=== PATIENT | female | born 1945 | race Caucasian/White ===

== ENCOUNTER 2017-01-03 00:06 | Outpatient (CLI) ==
[2017-01-03 18:08] VITALS: BMI 37.0
== END 2017-01-03 00:07 ==
LOC: AMBL 00:06
PROVIDERS: ATTEND Family Medicine
DX: R06.02 Shortness of breath (principal); K92.1 Melena

== ENCOUNTER 2017-01-03 18:01 | Emergency (ER) ==
[2017-01-03 18:08] VITALS: BMI 37.0
[2017-01-03 18:41] LABS: OCCULT BLOOD INTERNAL QC 1 INTERNAL QC VALID; OCCULT BLOOD INTERNAL QC 2 INTERNAL QC VALID; OCCULT BLOOD INTERNAL QC 3 INTERNAL QC VALID; OCCULT BLOOD SAMPLE 1 POSITIVE (NEGATIVE); OCCULT BLOOD SAMPLE 2 NO SPECIMEN RECEIVED (NEGATIVE); OCCULT BLOOD SAMPLE 3 NO SPECIMEN RECEIVED (NEGATIVE)
--- NOTE | 2017-01-03 18:42 | ED.PDOC ---
General Stated Complaint: weakness Time Seen by Physician: 18:00 Mode of Arrival: Walk-In Information Source: Patient Exam Limitations: No limitations Nursing and Triage Documentation Reviewed and Agree: Yes <SHLOMOBAILEY - Last Filed: 01/03/17 18:52> <MANUEL OLIVER - Last Filed: 01/03/17 22:26> ED Provider: Dr. MANUEL OLIVER Chief Complaint: Shortness of Air Primary Care Provider: GERMÁN PERALES Neurological Complaint Exam - Weakness Complaint/Exam Onset: Gradual Duration: 1 week balck tarry stools Symptoms Are: Resolved Timing: Intermittent Episodes Lasting: Days Initial Severity: Mild Current Severity: Mild Character: Reports: Weak Aggravating: Reports: Exertion Alleviating: Reports: Rest, Lying down Associated Signs and Symptoms: Reports: Short of air, Decreased oral intake Cardiac Risk Factors: Reports: Hypertension, Diabetes CVA Risk Factors: Reports: Diabetes, Hypertension Related Surgical History: Reports: None JVD Present: No Carotid Bruit Present: No Rectal Heme Positive: Yes (black tarry strong finding) Glascow Coma Scale (see protocol): 15 Nystagmus Present: No Gag Reflex Present: No Meningeal Signs Positive: No Focal Weakness: Present: None Focal Sensory Loss: Present: None Gait: Normal Babinski Sign: Negative Right, Negative Left Differential Diagnoses: CAD, Dysrhythmia, Hyperventilation, Hypovolemia, Metabolic abnormalities, Vasovagal reaction Quality Indicators for Cardiac Chest Pain: EKG in 10min. Quality Indicators for AMI: EKG in 10min. Quality Indicator For Non-Traumatic Chest Pain/Syncope: EKG Performed <SHLOMOBAILEY Filed: 01/03/17 18:52> Review of Systems - Review Of Systems Constitutional: Reports: Malaise, Weakness Eyes: Reports: No symptoms Ears, Nose, Mouth, Throat: Reports: No symptoms Respiratory: Reports: Short of air Cardiac: Reports: No symptoms GI: Reports: Abdominal pain, Rectal bleeding : Reports: No symptoms Musculoskeletal: Reports: No symptoms Skin: Reports: No symptoms Neurological: Reports: No symptoms Endocrine: Reports: No symptoms Hematologic/Lymphatic: Reports: No symptoms All Other Systems: Reviewed and Negative <SHLOMOBAILEY Last Filed: 01/03/17 18:52> Past Medical History - Past Medical History Previously Healthy: No Endocrine: Reports: DM 2, Dyslipidemia Cardiovascular: Reports: Hypertension Respiratory: Reports: None Hematological: Reports: None Gastrointestinal: Reports: None Genitourinary: Reports: None Neuro/Psych: Reports: None Musculoskeletal: Reports: None Cancer: Reports: None Last Menstrual Period: none - Surgical History General Surgical History: Reports: Unknown - Family History Family History: Reports: Unknown - Social History Smoking Status: Never smoker Hx Substance Use: No Alcohol Screening: None <FREDRICKHOWARDBAILEY Last Filed: 01/03/17 18:52> - Surgical History General Surgical History: Reports: Hysterectomy, Cholecystectomy, Hernia Repair <MANUEL OLIVER Last Filed: 01/03/17 22:26> Physical Exam - Physical Exam Appearance: Ill-appearing Ill-appearing: Moderate Pain Distress: Moderate Eyes: CHRISTIE, EOMI, Conjunctiva clear ENT: Ears normal, Nose normal, Oropharynx normal Respiratory: Airway patent, Breath sounds clear, Breath sounds equal, Respirations nonlabored Cardiovascular: RRR, Pulses normal, No rub, No murmur GI/: Soft, Nontender, No masses, Bowel sounds normal, No Organomegaly Musculoskeletal: Normal strength, ROM intact, No edema, No calf tenderness Skin: Warm, Dry, Normal color Neurological: Sensation intact, Motor intact, Reflexes intact, Cranial nerves intact, Alert, Oriented Psychiatric: Affect appropriate, Mood appropriate <SHLOMOBAILEY Filed: 01/03/17 18:52> Interpretation - Radiology Interpretation Radiology Interpretation By: Radiologist Radiology Results: Positive Exam Interpreted: CT Scan <GENIE OLIVERAN Last Filed: 01/03/17 22:26> Physician Notification - Case Discussed Physician Notified: RELIFE Time of Notification: 19:00 <SHLOMOBAILEY Filed: 01/03/17 18:52> Critical Care Note - Critical Care Note Total Time (mins): 0 <SHLOMOBAILEY Last Filed: 01/03/17 18:52> Course - Course Hematology/Chemistry: 01/03/17 18:40 01/03/17 18:40 <MANUEL OLIVER Last Filed: 01/03/17 22:26> - Course Orders, Labs, Meds: Lab Review 01/03/17 01/03/17 18:30 18:40 WBC 8.57 RBC 2.74 L Hgb 8.2 L Hct 24.8 L MCV 90.5 MCH 29.9 MCHC 33.1 RDW Coeff of Arun 14.1 Plt Count 320 Immature Gran % (Auto) 0.6 Neut % (Auto) 71.6 Lymph % (Auto) 20.3 Mcdonald % (Auto) 5.0 Eos % (Auto) 1.9 Baso % (Auto) 0.6 Immature Gran # (Auto) 0.1 Neut # 6.1 Lymph # 1.7 Mcdonald # 0.4 Eos # 0.2 Baso # 0.1 PT 11.1 H INR 1.08 APTT < 21.0 L Sodium 140 Potassium 4.4 Chloride 105 Carbon Dioxide 23 Anion Gap 16.4 BUN 55 H Creatinine 1.26 Estimated GFR (MDRD) 42.00 BUN/Creatinine Ratio 43.65 Glucose 126 H Lactic Acid 19.7 Calcium 9.6 Total Bilirubin 0.35 AST 31 ALT 16 Alkaline Phosphatase 69 Total Creatine Kinase 23 Troponin I 0.0120 B-Natriuretic Peptide 83 Total Protein 6.5 Albumin 3.3 L Globulin 3.2 Albumin/Globulin Ratio 1.03 Stl Occult Blood (IFOB) Positive Stool Occult Blood #2 No specimen received Stool Occult Blood #3 No specimen received Influenza A (Rapid) Negative Influenza B (Rapid) Negative Orders Category Date Time Status B-TYPE NATRIURETIC PEPTIDE Stat LAB 01/03/17 18:40 Completed BLOOD CULTURE Stat LAB 01/03/17 18:40 Received CBC W/ AUTO DIFF Stat LAB 01/03/17 18:40 Completed COMPREHENSIVE METABOLIC PANEL Stat LAB 01/03/17 18:40 Completed CREATINE KINASE Stat LAB 01/03/17 18:40 Completed LACTIC ACID Stat LAB 01/03/17 18:40 Completed OCCULT BLOOD, STOOL Stat LAB 01/03/17 18:30 Completed PARTIAL THROMBOPLASTIN TIME Stat LAB 01/03/17 18:40 Completed PT WITH INR Stat LAB 01/03/17 18:40 Completed RAPID FLU A/B Stat LAB 01/03/17 18:30 Completed TROPONIN I Stat LAB 01/03/17 18:40 Completed Gemfibrozil [Lopid] MEDS 01/03/17 22:30 Discontinued 600 mg PO BIDAC Gemfibrozil [Lopid] MEDS 01/03/17 22:22 Stat 600 mg PO ONCE STA Metformin HCl [Glucophage] MEDS 01/03/17 22:22 Stat 1,000 mg PO ONCE STA Metoprolol Succinate [Toprol Xl] MEDS 01/03/17 22:16 Stat 50 mg PO ONCE STA CT ABDOMEN/PELVIS WO CONTRAST Stat RADS 01/03/17 18:[address] CHEST W/O CONTRAST Stat RADS 01/03/17 18:23 Completed Medications Discontinued Medications Generic Name Dose Route Start Last Admin Trade Name Lauren PRN Reason Stop Dose Admin Gemfibrozil 600 mg 01/03/17 22:30 Lopid PO BIDAC MAYKEL Gemfibrozil 600 mg 01/03/17 22:22 Lopid PO 01/03/17 22:23 ONCE STA Metformin HCl 1,000 mg 01/03/17 22:22 Glucophage PO 01/03/17 22:23 ONCE STA Metoprolol Succinate 50 mg 01/03/17 22:16 Toprol Xl PO 01/03/17 22:17 ONCE STA Vital Signs: Temp Pulse Resp BP Pulse Ox 01/03/17 21:29 97.4 F L 81 16 126/69 100 01/03/17 18:01 97.3 F L 89 22 112/75 98 Departure - Departure Pt referred to PMD for follow-up: No Disposition Discussed With: Patient, Family <BAILEY KEENAN - Last Filed: 01/03/17 18:52> - Departure Time of Disposition: 22:24 Pt referred to PMD for follow-up: No <MANUEL OLIVER - Last Filed: 01/03/17 22:26> - Departure Disposition: TSF OTHER Discharge Problem: Rectal bleeding Instructions: Rectal Bleeding (ED) Condition: Stable Additional Instructions: Please call your Family Physician as soon as possible to schedule a follow-up appointment. Allergies/Adverse Reactions: Allergies No Known Allergies Allergy (Verified 01/03/17 18:09) Home Medications: Ambulatory Orders Atorvastatin Calcium [Lipitor] 20 mg PO BEDTIME 01/03/17 Enalapril Maleate [Vasotec] 10 mg PO DAILY 01/03/17 Gemfibrozil [Lopid] 600 mg PO BIDAC 01/03/17 Metformin HCl 1,000 mg PO BID 01/03/17 Metoprolol Succinate [Toprol Xl] 50 mg PO BID 01/03/17
[2017-01-03 18:56] LABS: FLU INTERNAL QC INTERNAL QC VALID; RAPID FLU A NEGATIVE (NEGATIVE); RAPID FLU B NEGATIVE (NEGATIVE)
[2017-01-03 18:58] LABS: BASOPHILS # (AUTO) 0.1 K/uL (0-0.2); BASOPHILS % (AUTO) 0.6 % (0.0-3.0); EOSINOPHILS # (AUTO) 0.2 K/ul (0.0-0.7); EOSINOPHILS % (AUTO) 1.9 % (0.0-7.0); HEMATOCRIT 24.8 % (37.0-47.0); HEMOGLOBIN 8.2 g/dl (12.0-16.0); IMMATURE GRANULOCYTE % (AUTO) 0.6 % (0.0-5.0); LYMPHOCYTES # (AUTO) 1.7 K/uL (0.60-3.4); LYMPHOCYTES % (AUTO) 20.3 (10.0-50.0); MEAN CORPUSCULAR HEMOGLOBIN 29.9 pg (27.0-31.0); MEAN CORPUSCULAR HGB CONC 33.1 (31.8-35.4); MEAN CORPUSCULAR VOLUME 90.5 fl (81.0-99.0); MONOCYTES # (AUTO) 0.4 K/uL (0.4-2.0); NEUTROPHILS # (AUTO) 6.1 K/ul (2.0-6.9); NEUTROPHILS % (AUTO) 71.6; PLATELET COUNT 320 10^3/uL (140-440); RED BLOOD COUNT 2.74 10^6/ul (4.20-5.40); WHITE BLOOD COUNT 8.57 K/ul (4.6-10.2)
[2017-01-03 19:04] LABS: PROTHROMBIN TIME 11.1 SEC (9.3-11.0)
[2017-01-03 19:18] LABS: ALBUMIN 3.3 g/dL (3.4-5.0); ALBUMIN/GLOBULIN RATIO 1.03; ANION GAP 16.4; BILIRUBIN,TOTAL 0.35 mg/dL (0.00-1.20); BUN/CREATININE RATIO 43.65; CALCIUM 9.6 mg/dL (8.2-10.2); CREATININE 1.26 mg/dL (0.60-1.30); POTASSIUM 4.4 mmol/L (3.5-5.10); TOTAL PROTEIN 6.5 g/dL (5.8-8.1); TROPONIN I 0.012 ng/ml (0.0000-0.4000)
[2017-01-03 19:27] LABS: PARTIAL THROMBOPLASTIN TIME < 21.0 SEC (23.9-40.0)
--- NOTE | 2017-01-03 21:07 | CT ---
EXAM: CT chest without contrast HISTORY: Cough COMPARISON: None TECHNIQUE: CT chest performed without intravenous contrast. Coronal and sagittal reformatted image s obtained. FINDINGS: Thyroid and thoracic inlet appear normal. Heart normal in size. No pericardial effusion . Coronary calcifications. Aorta normal in caliber. Atherosclerosis. Evaluation for lymphadenopa thy limited without contrast. No lymphadenopathy identified. Calcified mediastinal and hilar lymph nodes, consistent with old granulomatous disease. No acute abnormalities of the bones. Degenerativ e change in the spine. Central airway patent. Mild dependent density lung bases. Mild subsegmental atelectasis and/or scarring in the lingula.4 No airspace consolidation. No pleural effusion. No p neumothorax. Please refer to separate report CT abdomen pelvis regarding findings in the upper abdo men IMPRESSION: No acute cardiopulmonary process
[2017-01-03 21:30] VITALS: BP 126/69; TEMP 97.4
--- NOTE | 2017-01-03 21:35 | CT ---
EXAM: CT abdomen pelvis without contrast History: Abdominal pain, black stools Comparison: None available. Technique: Multiplanar CT images through the abdomen pelvis were obtained without the administratio n of IV contrast Findings: Lung bases are free of consolidation. No acute osseous abnormalities. Scoliosis. Severe degenerative changes within the lumbar spine. Degenerative changes of the pubic symphysis and bila teral hip joints with chondrocalcinosis. Cholecystectomy clips. No focal liver or splenic lesions. 4 mm left renal calculus and 3 mm right renal calculus. No hydronephrosis. Evaluation of the renal parenchyma is limited due to the lack o f contrast administration. No randa peripancreatic inflammation. Duodenal diverticulum. Adrenal g lands are unremarkable. No bladder wall thickening. No free air. No perirectal inflammation. Adn exal structures appear appropriate for patient's age. Colonic diverticulosis. There is a partially visualized right lateral abdominal wall hernia containing nondilated loops of bowel. Postsurgical changes of the anterior abdominal wall. 4.3 cm x 2.3 cm area of fluid within the right lateral ante rior abdomen. Additional adjacent 6.4 cm x 2.0 cm area of fluid within the right anterior abdomen. Impression: 1. Areas of fluid within the right anterior abdomen near the area of postsurgical change could be r elated to seromas although infected fluid collections are not excluded. 2. Colonic diverticulosis. 3. Right lateral abdominal wall hernia containing nondilated loops of bowel. There is no bowel obs truction. 4. Nonobstructing bilateral nephrolithiasis.
[2017-01-03] MEDS ORDERED: TOPROL XL PO STA (22:16)
[2017-01-03] MEDS ORDERED: LOPID PO STA (22:22)
[2017-01-03] MEDS ORDERED: GLUCOPHAGE PO STA (22:22)
[2017-01-03] MEDS ORDERED: LOPID PO SCH (22:30)
[2017-01-03] MEDS ORDERED: MORPHINE 2 MG/ML SYRINGE IVP STA (22:43)
[2017-01-03] MEDS ORDERED: GI COCKTAIL PO STA (22:43)
[2017-01-03] MEDS ORDERED: ZOFRAN 4 MG/2 ML IVP STA (22:43)
== END 2017-01-03 23:59 | disposition short-term general hospital (02) ==
LOC: ED 18:01
DX: K62.5 Hemorrhage of anus and rectum (principal); R53.1 Weakness; R06.02 Shortness of breath; I10 Essential (primary) hypertension; E11.9 Type 2 diabetes mellitus without complications; E78.5 Hyperlipidemia, unspecified; Z79.899 Other long term (current) drug therapy
CPT/HCPCS: 36415; 80053; 82272; 82550; 83605; 83880; 84484; 85025; 85610; 85730; 87040; 87804; 93005; 93010; 96374; 96375; 99284

== ENCOUNTER 2022-09-14 18:11 | Inpatient (IN) ==
--- NOTE | 2022-09-14 18:59 | ED.PDOC ---
General ED Provider: Dr. JUAN DIEGO LOPEZ Chief Complaint: Non-specific Complaint Stated Complaint: Flu dx last week. The cough and weakness worse over the past few days, poor appetite. She feels worse with exertion, fever, no chest pain, some GI upset, no med helping. Time Seen by Provider: 09/14/22 18:30 Mode of Arrival: Stretcher Information Source: Patient Exam Limitations: No limitations Primary Care Provider: GERMÁN ASHBY Nursing and Triage Documentation Reviewed and Agree: Yes Does patient meet sepsis criteria?: No System Inflammatory Response Syndrome: Not Applicable Sepsis Protocol: For patient's 13 years and over: Temp is 96.8 and below OR 101 and greater Pulse >90 BPM Resp >20/minute Acutely Altered Mental Status Are patient's symptoms suggestive of a new infection, such as: -Pneumonia -Skin, Soft Tissue -Endocarditis -UTI -Bone, Joint Infection -Implantable Device -Acute Abdominal Infection -Wound Infection -Meningitis -Blood Stream Catheter Infection -Unknown Respiratory Complaint Exam Respiratory Complaint/Exam Onset/Duration: Several days Symptoms Are: Worse Timing: Constant Initial Severity: Mild Current Severity: Moderate Location: Chest Character: Reports Non-productive cough Aggravating: Reports Exertion Alleviating: Reports None Associated Signs and Symptoms: Reports Dyspnea, Fever and Decreased oral intake History of Healthcare-Acquired Pneumonia: No Related Surgical History: Reports None Pulmonary Embolism Risk Factors: None Cardiac Risk Factors: Reports None Pseudomonas Risk Factors: Reports None Tuberculosis Risk Factors: Reports None Status Asthmaticus Risk Factors: Reports None Home Oxygen Use: No Recent Stress Test: No Recent Echo/LV Function: No Current Antibiotic Use: No Current Asthma Medication Use: No Respiratory Distress: Mild Inadequate Respiratory Effort: No Dysphagia Present: No Stridor Present: No JVD Present: No Accessory Muscle Use: No Retractions: Not Present Diminished Breath Sounds: Yes Sinus Tenderness: None Grunting Respirations: No Kussmaul Respirations: No Differential Diagnoses: Pneumonia and Lower Resp. Infection Quality Indicators For Pneumonia: Antibiotics in 6hr-admit, SpO2 assessed, Empiric Antibiotic Rx, Vital signs and Mental status assessed Review of Systems Review Of Systems Constitutional: Reports Fever, Malaise and Weakness Eyes: Reports No symptoms Ears, Nose, Mouth, Throat: Reports No symptoms Respiratory: Reports Cough Cardiac: Reports No symptoms GI: Reports Diarrhea, Nausea and Poor appetite : Reports No symptoms Musculoskeletal: Reports No symptoms Skin: Reports No symptoms Neurological: Reports No symptoms Endocrine: Reports No symptoms Hematologic/Lymphatic: Reports No symptoms All Other Systems: Reviewed and Negative [facility] Medical History Hernia of abdominal cavity Family History (Updated 09/14/22 @ 22:23 by AUGUSTA VANESSA RN) FATHER Myocardial infarct Other Diabetes Social History (Updated 09/14/22 @ 22:28 by AUGUSTA VANESSA RN) Smoking and tobacco status: Former smoker Surgical History History of cholecystectomy Hx of tonsillectomy Female Reproductive History Menstrual Hx Hysterectomy: No Hx Tubal Ligation: No Physical Exam Physical Exam Appearance: Reports Ill-appearing Ill-appearing: Moderate Pain Distress: None Eyes: Reports CHRISTIE ENT: Reports Oropharynx normal Neck: Supple Respiratory: Reports Airway patent, Breath sounds diminished and Rhonchi Cardiovascular: Reports RRR and Pulses normal GI/: Reports Soft and Nontender Musculoskeletal: Reports Limited ROM and Limited strength Skin: Reports Warm and Dry Neurological: Reports Sensation intact, Motor intact and Alert Psychiatric: Reports Affect appropriate and Mood appropriate Interpretation Radiology Interpretation Radiology Interpretation By: Radiologist Radiology Results: Positive Exam Interpreted: Portable CXR Xray Comments: LLL pneumonia EKG Interpretation Time of EKG #1: 19:32 Rate: Tachy (108) Rhythm: Sinus Ectopy: None [place]: Left ST Segment: Normal Interpretation: No acute ischemia Physician Notification Case Discussed Physician Notified: Dr. Ashby out of town Admit/Transition Orders Entered by ED Provider: Yes Admit To: Inpatient Critical Care Note Critical Care Note Total Critical Care Time (mins): 0 Course Course Hematology/Chemistry: 09/14/22 07:30 09/14/22 07:30 Orders, Labs, Meds: Lab Review 09/14/22 09/14/22 09/14/22 07:30 07:30 19:58 WBC 19.33 H RBC 3.34 L Hgb 11.0 L Hct 37.0 MCV 110.8 H MCH 32.9 H MCHC 29.7 L RDW Coeff of Arun 14.7 Plt Count 279 Immature Gran % (Auto) 0.6 Neut % (Auto) 87.4 H Lymph % (Auto) 7.0 L [place] % (Auto) 4.1 Eos % (Auto) 0.7 Baso % (Auto) 0.2 Neut # (Auto) 16.9 H Lymph # (Auto) 1.4 [place] # (Auto) 0.8 Eos # (Auto) 0.1 Baso # (Auto) 0.0 Immature Gran # (Auto) 0.1 Sodium 136.9 Potassium 4.19 Chloride 112.8 H Carbon Dioxide 16.3 L Anion Gap 11.99 BUN 17.9 H Creatinine 1.58 H Estimated GFR (MDRD) 32.00 BUN/Creatinine Ratio 11.32 Glucose 101.7 Lactic Acid Calcium 8.41 Magnesium 1.01 L Total Bilirubin 0.53 AST 33.5 ALT 12.3 Alkaline Phosphatase 173.0 H NT-Pro-B Natriuret Pep 2720.000 H Total Protein 7.18 Albumin 3.64 Globulin 3.54 Albumin/Globulin Ratio 1.02 SARS CoV-2 RNA Rapid ANISHA Negative 09/14/22 20:25 WBC RBC Hgb Hct MCV MCH MCHC RDW Coeff of Arun Plt Count Immature Gran % (Auto) Neut % (Auto) Lymph % (Auto) [place] % (Auto) Eos % (Auto) Baso % (Auto) Neut # (Auto) Lymph # (Auto) [place] # (Auto) Eos # (Auto) Baso # (Auto) Immature Gran # (Auto) Sodium Potassium Chloride Carbon Dioxide Anion Gap BUN Creatinine Estimated GFR (MDRD) BUN/Creatinine Ratio Glucose Lactic Acid 0.74 Calcium Magnesium Total Bilirubin AST ALT Alkaline Phosphatase NT-Pro-B Natriuret Pep Total Protein Albumin Globulin Albumin/Globulin Ratio SARS CoV-2 RNA Rapid ANISHA Orders Category Date Time Status EKG-(ED ONLY) Stat CARDIO 09/14/22 19:06 Completed BLOOD CULTURE Stat LAB 09/14/22 20:25 Received CBC W/ AUTO DIFF Stat LAB 09/14/22 07:30 Completed COMPREHENSIVE METABOLIC PANEL Stat LAB 09/14/22 07:30 Completed LACTIC ACID Stat LAB 09/14/22 20:25 Completed MAGNESIUM Stat LAB 09/14/22 07:30 Completed NT-PROBNP Stat LAB 09/14/22 07:30 Completed SARS COV-2 RNA RAPID ANISHA Stat LAB 09/14/22 19:58 Completed Ceftriaxone Sodium [Rocephin] MEDS 09/14/22 20:04 Discontinued 2 gm .ROUTE .STK-MED ONE Ceftriaxone Sodium [Rocephin] 1 gm MEDS 09/14/22 19:52 Discontinued 0.9 % Sodium Chloride [Sodium Chloride 100Ml] 100 ml IV ONCE Ipratropium/Albuterol Neb [Duoneb] MEDS 09/14/22 19:04 Discontinued 3 ml NEB ONCE ONE Sodium Chloride 0.9% [Sodium Chloride] 500 ml MEDS 09/14/22 19:04 Discontinued IV BOLUS CHEST, 1V AP ONLY Stat RADS 09/14/22 19:04 Completed Medications Generic Name Dose Route Start Last Admin Trade Name Freq PRN Reason Stop Dose Admin Acetaminophen 650 mg 09/14/22 21:02 09/14/22 21:58 Acetaminophen 325 Mg Tablet PO 650 mg Q6H PRN Administration Fever >101 Albuterol/Ipratropium 3 ml 09/15/22 00:00 09/14/22 23:05 Ipratropium/Albuterol Vial.Neb NEB 3 ml RTQ6H MAYKEL Administration Allopurinol 100 mg 09/15/22 09:00 Allopurinol 100 Mg Tablet PO DAILY MAYKEL Aspirin 81 mg 09/15/22 09:00 Aspirin 81 Mg Tablet.Dr PO DAILY MAYKEL Atorvastatin Calcium 20 mg 09/14/22 22:58 09/14/22 23:06 Atorvastatin Calcium 20 Mg Tablet PO 20 mg BEDTIME MAYKEL Administration Gabapentin 100 mg 09/15/22 09:00 Gabapentin 100 Mg Capsule PO DAILY MAYKEL CEFTRIAXONE/D5W 1 GM PREMIX 1 gm in 50 mls @ 75 mls/hr 09/15/22 09:00 Rocephin 1 Gm/50 Ml D5w IV 09/18/22 08:59 DAILY [facility] Sodium Chloride 1,000 mls @ 125 mls/hr 09/14/22 21:30 09/14/22 23:07 Sodium Chloride IV 125 mls/hr .Q8H MAYKEL Administration Metoprolol Succinate 50 mg 09/14/22 22:59 09/14/22 23:07 Metoprolol Succinate 50 Mg Tab.Er.24h PO 50 mg BID MAYKEL Administration Multivitamins 1 tab 09/15/22 09:00 Multivitamin 1 Tab PO QAM MAYKEL Non-Formulary Medication 250 mg 09/15/22 09:00 Magnesium PO BID [facility] Non-Formulary Medication 1,200 mg 09/15/22 09:00 Calcium Carbonate [Calcium 600] PO BID MAYKEL Non-Formulary Medication 1 tab 09/15/22 09:00 Vitamin Y64-Xarfl Acid PO BID MAYKEL Pantoprazole Sodium 40 mg 09/15/22 06:30 Pantoprazole Sodium 40 Mg Tablet. PO BIDAC MAYKEL Sodium Bicarbonate 325 mg 09/15/22 09:00 Sodium Bicarbonate 650 Mg Tablet PO DAILY MAYKEL Discontinued Medications Generic Name Dose Route Start Last Admin Trade Name Lauren PRN Reason Stop Dose Admin Albuterol/Ipratropium 3 ml 09/14/22 19:04 09/14/22 19:30 Ipratropium/Albuterol Vial.Neb NEB 09/14/22 19:05 3 ml ONCE ONE Administration Atorvastatin Calcium 20 mg 09/15/22 21:00 Atorvastatin Calcium 20 Mg Tablet PO BEDTIME MAYKEL Sodium Chloride 500 mls @ 500 mls/hr 09/14/22 19:04 09/14/22 20:20 Sodium Chloride IV 09/14/22 20:03 500 mls/hr BOLUS STA Administration Ceftriaxone Sodium 1 gm/ 100 mls @ 100 mls/hr 09/14/22 19:52 09/14/22 20:25 Sodium Chloride IV 09/14/22 20:51 100 mls/hr ONCE ONE Administration Azithromycin 500 mg/ Sodium 250 mls @ 125 mls/hr 09/14/22 20:56 09/14/22 22:08 Chloride IV 09/14/22 22:55 125 mls/hr ONCE ONE Administration Metoprolol Succinate 50 mg 09/15/22 09:00 Metoprolol Succinate 50 Mg Tab.Er.24h PO BID MAYKEL Vital Signs: Temp Pulse Resp BP Pulse Ox 09/14/22 18:48 183/72 H 97 09/14/22 18:12 99.5 F 106 H 20 175/105 H 96 Discharge Plan Discharge Patient Disposition: ADMITTED INPATIENT Discharge Problem: Pneumonia Did you review [place] DRIVER/MERCHANDISER?: Not Applicable ED Provider: JUAN DIEGO LOPEZ Condition: Fair Physician Progress Note: [Admit for pneumonia tx, IVF. ]
[2022-09-14] MEDS ORDERED: DUONEB NEB ONE (19:04)
[2022-09-14] MEDS ORDERED: SODIUM CHLORIDE 500 ML IV STA (19:04)
[2022-09-14 19:34] LABS: BASOPHILS % (AUTO) 0.2 % (0.0-3.0); EOSINOPHILS # (AUTO) 0.1 K/ul (0.0-0.7); EOSINOPHILS % (AUTO) 0.7 % (0.0-7.0); IMMATURE GRANULOCYTE # (AUTO) 0.1 (0.0-1.0); IMMATURE GRANULOCYTE % (AUTO) 0.6 % (0.0-5.0); LYMPHOCYTES # (AUTO) 1.4 K/uL (0.60-3.4); MEAN CORPUSCULAR HEMOGLOBIN 32.9 pg (27.0-31.0); MEAN CORPUSCULAR HGB CONC 29.7 (31.8-35.4); MEAN CORPUSCULAR VOLUME 110.8 fl (81.0-99.0); MONOCYTES # (AUTO) 0.8 K/uL (0.4-2.0); MONOCYTES % (AUTO) 4.1 (0-10); NEUTROPHILS # (AUTO) 16.9 K/ul (2.0-6.9); NEUTROPHILS % (AUTO) 87.4 % (42.2-75.2); PLATELET COUNT 279 10^3/uL (140-440); RDW COEFFICIENT OF VARIATION 14.7 % (11.6-14.8); RED BLOOD COUNT 3.34 10^6/ul (4.20-5.40); WHITE BLOOD COUNT 19.33 K/ul (4.6-10.2)
--- NOTE | 2022-09-14 19:34 | DI ---
EXAM: Single frontal view of the chest HISTORY: Body aches and concern for the fluid. COMPARISON: CT chest 12/22/2021 FINDINGS: Cardiomediastinal silhouette is unremarkable. There is no pneumothorax. There is hazy nathan und-glass consolidation in the left lower lobe. The lungs are otherwise clear. There is degenerativ e disease of the spine. There are surgical clips in the left upper abdomen. IMPRESSION: There is consolidation in the left lower lobe concerning for pneumonia.
[2022-09-14 19:46] LABS: ALANINE AMINOTRANSFERASE 12.3 U/L (0-35); ALBUMIN 3.64 g/dL (3.5-5.0); ASPARTATE AMINO TRANSFERASE 33.5 U/L (14-36); BILIRUBIN,TOTAL 0.53 mg/dL (0.2-1.3); BLOOD UREA NITROGEN 17.9 mg/dL (7-17); CALCIUM 8.41 mg/dL (8.4-10.2); CARBON DIOXIDE 16.3 mmol/L (22-30.0); CHLORIDE 112.8 mmol/L (98-107); CREATININE 1.58 mg/dL (0.60-1.30); GLUCOSE 101.7 mg/dL (74-106); MAGNESIUM 1.01 mg/dL (1.6-2.3); POTASSIUM 4.19 mmol/L (3.5-5.1); SODIUM 136.9 mmol/L (134.5-145); TOTAL PROTEIN 7.18 g/dL (6.3-8.2)
[2022-09-14] MEDS ORDERED: SODIUM CHLORIDE IV ONE (19:52)
[2022-09-14] MEDS ORDERED: ROCEPHIN IV ONE (19:52)
[2022-09-14] MEDS ORDERED: ROCEPHIN 2 GM VIAL ONE (20:04)
[2022-09-14 20:38] LABS: SARS COV-2 RNA RAPID NAAT NEGATIVE (NEGATIVE)
[2022-09-14] MEDS ORDERED: ZITHROMAX 500 MG in SODIUM CHLORIDE 250 ML IV ONE (20:56)
[2022-09-14] MEDS: TYLENOL PO PRN (21:58)
[2022-09-14 22:15] VITALS: BMI 35.2
[2022-09-14] MEDS: DUONEB NEB SCH (23:05)
[2022-09-14] MEDS: LIPITOR PO SCH (23:06)
[2022-09-14] MEDS: TOPROL XL PO SCH (23:07)
[2022-09-14] MEDS: SODIUM CHLORIDE 1,000 ML IV SCH (23:07)
[2022-09-15] MEDS: PROTONIX PO SCH ×2 (06:05→16:47)
[2022-09-15] MEDS: DUONEB NEB SCH ×4 (06:10→23:00)
[2022-09-15] MEDS: SODIUM CHLORIDE 1,000 ML IV SCH ×2 (07:29→14:35)
[2022-09-15] MEDS: ASPIRIN EC PO SCH (08:09)
[2022-09-15] MEDS: CALCIUM 500 + VIT D 5 MCG (200 IU) TABLET PO SCH ×2 (08:09→20:12)
[2022-09-15] MEDS: MAG-OX PO SCH ×2 (08:10→20:11)
[2022-09-15] MEDS: ZYLOPRIM PO SCH (08:10)
[2022-09-15] MEDS: TOPROL XL PO SCH ×2 (08:11→20:11)
[2022-09-15] MEDS: NEURONTIN PO SCH (08:11)
[2022-09-15] MEDS: MULTIVITAMIN TABLET PO SCH (08:11)
[2022-09-15] MEDS: SODIUM BICARBONATE PO SCH (08:11)
[2022-09-15] MEDS ORDERED: TOPROL XL PO SCH (09:00)
[2022-09-15] MEDS ORDERED: NON-FORMULARY MEDICATION (Calcium Carbonate [Calcium 600] 600 mg calcium (1,500 mg) Tablet PO SCH (09:00)
[2022-09-15] MEDS ORDERED: NON-FORMULARY MEDICATION (Magnesium 250 mg Tablet) PO SCH (09:00)
--- NOTE | 2022-09-15 09:16 | PCM.PROG ---
Date Seen by Provider: 09/15/22 Time Seen by Provider: 08:50 Subjective: Having episodes of severe coughing. Dyspneic. Objective: Vitals: T=97.4 F, P=85, R=20, SZ=607/67, SPO2=98 Patient having severe coughing during examination. Appears weak. HEENT: [] Neck: [] Lungs: [] Decreased breath sounds at left base. CVS: [] RRR. Abdomen: [] Extremities: [] No edema. Neurological: [] Skin: [] Lab/Tests/Diagnostic Imaging: [] (1) Pneumonia: Status: Acute Code(s): J18.9 - Pneumonia, unspecified organism SNOMED Code(s): 199447256 (2) Cough: Status: Acute Code(s): R05.9 - Cough, unspecified SNOMED Code(s): 96089643 Plan: Add isidoro brand. Change azithromycin dosing as per pharmacy recommendations. Repeat CXR.
[2022-09-15] MEDS: TESSALON PERLES PO PRN ×2 (09:24→20:16)
[2022-09-15] MEDS: NON-FORMULARY MEDICATION (Vitamin B12-Folic Acid 500-400 mcg Tablet) PO SCH ×2 (09:38→21:16)
[2022-09-15] MEDS: LIPITOR PO SCH (20:11)
[2022-09-15] MEDS ORDERED: ZITHROMAX 500 MG in SODIUM CHLORIDE 250 ML IV SCH (21:00)
[2022-09-15] MEDS ORDERED: LIPITOR PO SCH (21:00)
[2022-09-15] MEDS ORDERED: ROCEPHIN 1 GM/50 ML D5W 1 GM/50 ML BAG IV SCH (21:00)
[2022-09-15] MEDS: TYLENOL PO PRN (21:35)
[2022-09-16] MEDS: SODIUM CHLORIDE 1,000 ML IV SCH (01:18)
[2022-09-16] MEDS: DUONEB NEB SCH ×2 (04:35→11:48)
[2022-09-16 05:29] VITALS: BP 152/70; TEMP 98.6
[2022-09-16] MEDS: PROTONIX PO SCH (06:03)
[2022-09-16] MEDS: TESSALON PERLES PO PRN ×2 (06:03→08:34)
[2022-09-16] MEDS: CALCIUM 500 + VIT D 5 MCG (200 IU) TABLET PO SCH (08:37)
[2022-09-16] MEDS: ASPIRIN EC PO SCH (08:37)
[2022-09-16] MEDS: MAG-OX PO SCH (08:41)
[2022-09-16] MEDS: MULTIVITAMIN TABLET PO SCH (08:41)
[2022-09-16] MEDS: ZYLOPRIM PO SCH (08:42)
[2022-09-16] MEDS: NEURONTIN PO SCH (08:43)
[2022-09-16] MEDS: SODIUM BICARBONATE PO SCH (08:43)
[2022-09-16] MEDS: TOPROL XL PO SCH (08:43)
[2022-09-16] MEDS: NON-FORMULARY MEDICATION (Vitamin B12-Folic Acid 500-400 mcg Tablet) PO SCH (08:48)
--- NOTE | 2022-09-16 09:04 | DI ---
EXAM: Frontal and lateral views of the chest. HISTORY: Cough and shortness of breath. COMPARISON: Chest radiograph 09/14/2022. FINDINGS: Surgical clips in the upper abdomen. Normal heart size. Calcifications of the aorta. Patchy consolidative opacities at the left base. No pleural effusion or pneumothorax. Multilevel spondylosis. Dextroconvex scoliosis. Bones appear demineralized. IMPRESSION: Unchanged left basilar consolidation consistent with pneumonia.
[2022-09-16] MEDS ORDERED: ROBITUSSIN AC SYRUP PO PRN (09:16)
[2022-09-16 10:14] LABS: BASOPHILS % (AUTO) 0.2 % (0.0-3.0); EOSINOPHILS # (AUTO) 0.2 K/ul (0.0-0.7); HEMATOCRIT 27.7 % (37.0-47.0); HEMOGLOBIN 8.8 g/dl (12.0-16.0); IMMATURE GRANULOCYTE # (AUTO) 0.1 (0.0-1.0); IMMATURE GRANULOCYTE % (AUTO) 0.7 % (0.0-5.0); LYMPHOCYTES # (AUTO) 0.7 K/uL (0.60-3.4); LYMPHOCYTES % (AUTO) 5.7 (10.0-50.0); MEAN CORPUSCULAR HEMOGLOBIN 32.5 pg (27.0-31.0); MEAN CORPUSCULAR HGB CONC 31.8 (31.8-35.4); MEAN CORPUSCULAR VOLUME 102.2 fl (81.0-99.0); MONOCYTES # (AUTO) 0.7 K/uL (0.4-2.0); MONOCYTES % (AUTO) 5.9 (0-10); NEUTROPHILS # (AUTO) 10.2 K/ul (2.0-6.9); NEUTROPHILS % (AUTO) 85.5 % (42.2-75.2); PLATELET COUNT 217 10^3/uL (140-440); RED BLOOD COUNT 2.71 10^6/ul (4.20-5.40); WHITE BLOOD COUNT 11.88 K/ul (4.6-10.2)
[2022-09-16] MEDS: TYLENOL PO PRN (10:17)
[2022-09-16 10:29] LABS: BLOOD UREA NITROGEN 14.3 mg/dL (7-17); CALCIUM 7.99 mg/dL (8.4-10.2); CARBON DIOXIDE 18.9 mmol/L (22-30.0); CHLORIDE 115.6 mmol/L (98-107); CREATININE 1.41 mg/dL (0.60-1.30); GLUCOSE 118.9 mg/dL (74-106); SODIUM 139.7 mmol/L (134.5-145)
[2022-09-16] MEDS ORDERED: ZITHROMAX PO ONE (12:30)
[2022-09-16] MEDS ORDERED: CEFTIN PO ONE (12:30)
--- NOTE | 2022-09-16 12:36 | PCM.DC ---
Final Diagnosis: Pneumonia, LLL, bacterial. Date of admit - 09/14/22 Date of discharge - 09/16/22 Physical Exam Appearance: Well-appearing Ill-appearing: None Pain Distress: None Eyes: CHRISTIE ENT: Oropharynx normal Neck: Supple Respiratory: Airway patent, Breath sounds equal and Breath sounds diminished Cardiovascular: RRR and Pulses normal GI/: Soft and Nontender Musculoskeletal: Normal strength and ROM intact Skin: Warm and Dry Neurological: Sensation intact and Motor intact Psychiatric: Affect appropriate and Mood appropriate (1) Pneumonia: Status: Acute Code(s): J18.9 - Pneumonia, unspecified organism SNOMED Code(s): 468180714 (2) Cough: Status: Acute Code(s): R05.9 - Cough, unspecified SNOMED Code(s): 81810692 Reason for Hospitalization: LLL pneumonia as a complication of flu. Mild dehydration and hypoxemia. Prognosis/Condition at Discharge: Good. Stable. Medications at Discharge: Medications at Discharge (Home Meds & RX) atorvastatin 20 mg tablet 20 mg PO BEDTIME 01/03/17 metoprolol succinate 50 mg tablet,extended release 24 hr (Toprol XL) 50 mg PO BID 01/03/17 Bacillus coagulans 250 million cell chewable tablet (Probiotic (B. coagulans)) 1 cell PO BID 02/16/20 calcium carbonate 600 mg calcium (1,500 mg) tablet (Calcium) 1,200 mg PO BID 02/16/20 multivitamin 1 tab PO QAM 02/16/20 pantoprazole 40 mg tablet,delayed release 40 mg PO BIDAC 02/16/20 sodium bicarbonate 325 mg tablet 325 mg PO DAILY 02/16/20 vitamin B12 500 mcg-folic acid 400 mcg tablet 1 tab PO BID 02/16/20 allopurinol 100 mg tablet 100 mg PO DAILY 12/22/21 aspirin 81 mg tablet,delayed release 81 mg PO DAILY 12/22/21 gabapentin 100 mg capsule 100 mg PO DAILY 12/22/21 magnesium 250 mg tablet 250 mg PO BID 09/14/22 cefuroxime axetil 500 mg tablet 500 mg PO BID Pneumonia 10 days #20 tabs 09/16/22 codeine 10 mg-guaifenesin 100 mg/5 mL oral liquid 10 ml PO Q4-6H PRN cough #237 mL 09/16/22 Lab/Diagnostics: Laboratory Tests 09/14/22 09/14/2222 07:30 07:30 19:58 WBC 19.33 H RBC 3.34 L Hgb 11.0 L Hct 37.0 MCV 110.8 H MCH 32.9 H MCHC 29.7 L RDW Coeff of Arun 14.7 Plt Count 279 Immature Gran % (Auto) 0.6 Neut % (Auto) 87.4 H Lymph % (Auto) 7.0 L Bea[place]gard % (Auto) 4.1 Eos % (Auto) 0.7 Baso % (Auto) 0.2 Neut # (Auto) 16.9 H Lymph # (Auto) 1.4 [place]gard # (Auto) 0.8 Eos # (Auto) 0.1 Baso # (Auto) 0.0 Immature Gran # (Auto) 0.1 Sodium 136.9 Potassium 4.19 Chloride 112.8 H Carbon Dioxide 16.3 L Anion Gap 11.99 BUN 17.9 H Creatinine 1.58 H Estimated GFR (MDRD) 32.00 BUN/Creatinine Ratio 11.32 Glucose 101.7 Lactic Acid Calcium 8.41 Magnesium 1.01 L Total Bilirubin 0.53 AST 33.5 ALT 12.3 Alkaline Phosphatase 173.0 H NT-Pro-B Natriuret Pep 2720.000 H Total Protein 7.18 Albumin 3.64 Globulin 3.54 Albumin/Globulin Ratio 1.02 SARS CoV-2 RNA Rapid ANISHA Negative 09/14/22 09/16/22 09/16/22 20:25 10:08 10:08 WBC 11.88 H D RBC 2.71 L Hgb 8.8 L Hct 27.7 L D MCV 102.2 H D MCH 32.5 H MCHC 31.8 RDW Coeff of Arun 15.0 H Plt Count 217 Immature Gran % (Auto) 0.7 Neut % (Auto) 85.5 H Lymph % (Auto) 5.7 L Bea[place] % (Auto) 5.9 Eos % (Auto) 2.0 Baso % (Auto) 0.2 Neut # (Auto) 10.2 H Lymph # (Auto) 0.7 Bea[place]gard # (Auto) 0.7 Eos # (Auto) 0.2 Baso # (Auto) 0.0 Immature Gran # (Auto) 0.1 Sodium 139.7 Potassium 4.00 Chloride 115.6 H Carbon Dioxide 18.9 L Anion Gap 9.20 BUN 14.3 Creatinine 1.41 H Estimated GFR (MDRD) 36.00 BUN/Creatinine Ratio 10.14 Glucose 118.9 H Lactic Acid 0.74 Calcium 7.99 L Magnesium Total Bilirubin AST ALT Alkaline Phosphatase NT-Pro-B Natriuret Pep Total Protein Albumin Globulin Albumin/Globulin Ratio SARS CoV-2 RNA Rapid ANISHA EXAM: Single frontal view of the chest HISTORY: Body aches and concern for the fluid. COMPARISON: CT chest 12/22/2021 FINDINGS: Cardiomediastinal silhouette is unremarkable. There is no pneumothorax. There is hazy ground-glass consolidation in the left lower lobe. The lungs are otherwise clear. There is degenerative disease of the spine. There are surgical clips in the left upper abdomen. IMPRESSION: There is consolidation in the left lower lobe concerning for pneumonia. Education Provided to Patient and Family: Per RN Follow-ups: PCP Discharge Disposition: Home Hospital Course: Admitted with LLL pneumonia, mild dehydration and hypoxemia. Clinically improved on rocephin and zithromax. No wheezing. O2 sat on RA 95%. Renal function improved with hydration. WBC nearly normal. VSS, afeb. She asked for "strong cough syrup" for home use. Plan: D/C home. Rx ceftin and Peter. AC. Cont. home med. Total time spent in [id number] exam and documentation is 45 minutes.
== END 2022-09-16 13:56 | disposition home or self-care (01) | DRG 195 ==
LOC: ED 18:11 → MEDSURG A 20:55
PROVIDERS: ADMIT Emergency Medicine; ATTEND Emergency Medicine
DX: R09.02 Hypoxemia; Z79.82 Long term (current) use of aspirin; J18.9 Pneumonia, unspecified organism; Z79.899 Other long term (current) drug therapy; R06.02 Shortness of breath; Z20.822 Contact with and (suspected) exposure to COVID-19; R05.9 Cough, unspecified; E86.0 Dehydration; Z51.81 Encounter for therapeutic drug level monitoring